=== PATIENT | female | born 1950 | race Hispanic/Latino ===

== ENCOUNTER 2017-08-18 01:39 | Inpatient (IN) | payer MEDICARE ==
[~2017-08-18] VITALS: Ht 154.9 cm; Wt 85.3 kg
[2017-08-18] MEDS ORDERED: SUCRALFATE 1 GM TABLET ONE ×3 (02:15→12:51)
[2017-08-18] MEDS ORDERED: HYOSCYAMINE SULFATE 0.125 MG TAB.SUBL SL ONE (02:15)
[2017-08-18] MEDS ORDERED: ONDANSETRON HCL 4 MG/2 ML VIAL ONE (02:15)
[2017-08-18] MEDS ORDERED: FAMOTIDINE/PF 20 MG/2 ML VIAL IV ONE (02:16)
[2017-08-18 02:35] LABS: BASOPHILS % (AUTO) 0.3 % (0.0-5.0); EOSINOPHILS % (AUTO) 0.1 % (0.0-8.0); HEMATOCRIT 35.1 % (36-48); LYMPHOCYTES % (AUTO) 21.9 % (21.0-51.0); MONOCYTES % (AUTO) 7.9 % (3.0-13.0); NEUTROPHILS % (AUTO) 69.8 % (40.0-77.0); PLATELET COUNT (AUTO) 304 K/uL (130-400); RED BLOOD CELL COUNT(AUTO) 4.23 MIL/uL (4.00-5.50); RED CELL DISTRIBUTION WIDTH 13.3 % (11.0-15.5); WHITE BLOOD COUNT (AUTO) 8.4 K/uL (4.8-10.8)
[2017-08-18 02:37] LABS: APPEARANCE,URINE Clear (CLEAR); BILIRUBIN,URINE Negative (NEGATIVE); COLOR,URINE Yellow (YELLOW); GLUCOSE, URINE (UA) Negative (NEGATIVE); KETONES,URINE Negative (NEGATIVE); LEUKOCYTE ESTERASE ,URINE Small (NEGATIVE); NITRATE,URINE Negative (NEGATIVE); OCCULT BLOOD,URINE Small (NEGATIVE); PH,URINE 6.5 (5.0-8.0); PROTEIN,URINE Negative (NEGATIVE); UROBILINOGEN,URINE 0.2 mg/dL (0.2-1.0)
[2017-08-18 02:49] LABS: BACTERIA,URINE Few /HPF (None Seen); MUCUS,URINE Rare LPF (None Seen); RBC,URINE None Seen /HPF (0-1); SQUAMOUS EPITHELIAL CELL,UR Few /LPF (0-2); WBC,URINE None Seen /HPF (0-1)
[2017-08-18 02:59] LABS: ALBUMIN 3.7 g/dL (3.5-5.0); BILIRUBIN,TOTAL 0.6 mg/dL (0.2-1.0); CREATINE KINASE MB 3.2 ng/mL (0.5-3.6); CREATININE 0.8 mg/dL (0.5-1.5); POTASSIUM 4.4 mmol/L (3.5-5.1); TOTAL PROTEIN, SERUM 7.6 g/dL (6.0-8.3)
[2017-08-18] MEDS ORDERED: SODIUM CHLORIDE 0.9% 1000ML 1,000 ML IV ONE ×2 (03:48→12:51)
[2017-08-18] MEDS: SODIUM CHLORIDE 0.9% 1000ML 1,000 ML IV SCH ×4 (05:12→23:07)
[2017-08-18] MEDS ORDERED: ONDANSETRON HCL 4 MG/2 ML VIAL IV PRN (05:15)
[2017-08-18] MEDS ORDERED: ACETAMINOPHEN 325 MG TAB PO PRN (05:15)
[2017-08-18] MEDS: SUCRALFATE 1 GM/10 ML PO SCH ×4 (07:30→23:07)
[2017-08-18 07:37] LABS: CARBON DIOXIDE 27 mmol/L (21-32); CREATINE KINASE, TOTAL 166 U/L (21-232); CREATININE 0.8 mg/dL (0.5-1.5); GLOMERULAR FILTR. RATE CALC 76 mL/min (>60); GLUCOSE,RANDOM 168 mg/dL (70-105); MYOGLOBIN 105 ng/mL (10-92); POTASSIUM 4.4 mmol/L (3.5-5.1); SODIUM SERUM 119 mmol/L (136-145); TROPONIN I < 0.04 ng/mL (0.00-0.06); UREA NITROGEN, BLOOD 10 mg/dL (7-18)
[2017-08-18 07:39] LABS: CHLORIDE 85 mmol/L (101-111)
[2017-08-18 08:01] LABS: CREATINE KINASE MB 3.2 ng/mL (0.5-3.6)
[2017-08-18] MEDS: PANTOPRAZOLE SODIUM 40 MG TABLET.DR PO SCH (09:00)
[2017-08-18] MEDS: ENOXAPARIN SODIUM 40 MG/0.4 ML SYRINGE SQ SCH (09:00)
[2017-08-18] MEDS ORDERED: PANTOPRAZOLE SODIUM 40 MG TABLET.DR PO ONE (09:06)
[2017-08-18] MEDS ORDERED: ENOXAPARIN SODIUM 40 MG/0.4 ML SYRINGE SQ ONE (09:06)
[2017-08-18 13:51] LABS: CREATINE KINASE MB 3.4 ng/mL (0.5-3.6); CREATINE KINASE, TOTAL 171 U/L (21-232); MYOGLOBIN 84 ng/mL (10-92); TROPONIN I < 0.04 ng/mL (0.00-0.06)
[2017-08-18 14:02] VITALS: BP 119/55
[2017-08-18] MEDS ORDERED: METF500T6 PO (15:09)
[2017-08-18] MEDS ORDERED: OMEG100033 PO (15:09)
[2017-08-18] MEDS ORDERED: ATOR10TA69 PO (15:09)
[2017-08-18] MEDS ORDERED: LISI40TA4 PO (15:09)
[2017-08-18] MEDS ORDERED: CHOL200013 PO (15:09)
[2017-08-18] MEDS ORDERED: SITA100T12 PO (15:09)
[2017-08-18] MEDS ORDERED: FERR-82 PO (15:09)
[2017-08-18 16:38] VITALS: BP 134/57
[2017-08-18 20:00] VITALS: BP 131/56
[2017-08-18 20:53] LABS: CREATININE 0.8 mg/dL (0.5-1.5); POTASSIUM 4.3 mmol/L (3.5-5.1)
[2017-08-19 00:18] VITALS: BP 127/53
[2017-08-19 02:12] LABS: CREATININE 0.8 mg/dL (0.5-1.5); POTASSIUM 4.7 mmol/L (3.5-5.1)
[2017-08-19 04:39] VITALS: BP 121/42
[2017-08-19] MEDS: SUCRALFATE 1 GM/10 ML PO SCH ×2 (06:36→12:38)
[2017-08-19 08:03] VITALS: BP 132/86
[2017-08-19] MEDS: PANTOPRAZOLE SODIUM 40 MG TABLET.DR PO SCH (08:18)
[2017-08-19] MEDS: ENOXAPARIN SODIUM 40 MG/0.4 ML SYRINGE SQ SCH (08:19)
[2017-08-19] MEDS: SODIUM CHLORIDE 0.9% 1000ML 1,000 ML IV SCH (08:25)
[2017-08-19] MEDS ORDERED: CARAL PO (08:59)
[2017-08-19] MEDS ORDERED: PANT40TA PO (08:59)
[2017-08-19 09:33] LABS: CREATININE 0.9 mg/dL (0.5-1.5); POTASSIUM 4.9 mmol/L (3.5-5.1)
[2017-08-19 11:20] VITALS: BP 124/54
== END 2017-08-19 12:45 | disposition home or self-care (01) | DRG 392 ==
LOC: EDH 01:39 → EDHIP 05:12 → 4AH 13:30
PROVIDERS: ADMIT Family Medicine; ATTEND Family Medicine
DX: K21.0 Gastro-esophageal reflux disease with esophagitis (principal); E87.1 Hypo-osmolality and hyponatremia; E87.8 Other disorders of electrolyte and fluid balance, not elsewhere classified; E11.9 Type 2 diabetes mellitus without complications; I10 Essential (primary) hypertension; E78.5 Hyperlipidemia, unspecified; E86.1 Hypovolemia
CPT/HCPCS: 36415; 80048; 80053; 81001; 82550; 82553; 82948; 83690; 83874; 83880; 84484; 85025; 93005; J1650; J2405; J3490; J7030

== ENCOUNTER 2017-09-27 14:59 | Emergency (ER) | payer MEDICARE ==
[~2017-09-27 14:59] MED LIST: ATOR10TA69 PO; CARAL PO; CHOL200013 PO; FERR-82 PO; LISI40TA4 PO; METF500T6 PO; OMEG100033 PO; PANT40TA PO; SITA100T12 PO
[2017-09-27] MEDS ORDERED: GUAIFENESIN SUGAR-FREE 100 MG/5 ML UDCUP ONE (15:41)
== END 2017-09-27 17:24 | disposition home or self-care (01) ==
LOC: EDH 14:59
DX: J10.1 Influenza due to other identified influenza virus with other respiratory manifestations (principal); E78.5 Hyperlipidemia, unspecified; E11.9 Type 2 diabetes mellitus without complications; I10 Essential (primary) hypertension
CPT/HCPCS: 71046; 87804

== ENCOUNTER 2017-10-03 14:38 | Inpatient (IN) | payer MEDICARE ==
[~2017-10-03] VITALS: Ht 154.9 cm; Wt 79.8 kg
[2017-10-03] MEDS ORDERED: ONDANSETRON ODT 4 MG TAB ONE (15:05)
[2017-10-03 15:19] LABS: BASOPHILS % (AUTO) 0.3 % (0.0-5.0); EOSINOPHILS % (AUTO) 0.1 % (0.0-8.0); HEMATOCRIT 33.6 % (36-48); MEAN CORPUSCULAR HEMOGLOBIN 28.8 pg (27.0-33.0); MEAN CORPUSCULAR HGB CONC 34.3 g/dL (32.0-36.0); MEAN CORPUSCULAR VOLUME 84.1 fL (79-99); MONOCYTES % (AUTO) 7.4 % (3.0-13.0); NEUTROPHILS % (AUTO) 68.2 % (40.0-77.0); PLATELET COUNT (AUTO) 314 K/uL (130-400); RED CELL DISTRIBUTION WIDTH 12.9 % (11.0-15.5); WHITE BLOOD COUNT (AUTO) 6.3 K/uL (4.8-10.8)
[2017-10-03 15:43] LABS: ALBUMIN 3.5 g/dL (3.5-5.0); BILIRUBIN,TOTAL 0.3 mg/dL (0.2-1.0); CREATININE 0.7 mg/dL (0.5-1.5); POTASSIUM 4.9 mmol/L (3.5-5.1); TOTAL PROTEIN, SERUM 7.4 g/dL (6.0-8.3)
[2017-10-03] MEDS ORDERED: SODIUM CHLORIDE 0.9% 1000ML 1,000 ML IV ONE (15:54)
[2017-10-03] MEDS ORDERED: SODIUM CHLORIDE 0.9% 1000ML 1,000 ML IV SCH (17:15)
[2017-10-03] MEDS ORDERED: ONDANSETRON HCL MDV 20ML 2 MG/ML VIAL IVP PRN (17:15)
[2017-10-03] MEDS ORDERED: BENZ-51 PO (18:25)
[2017-10-03 18:44] VITALS: BP 161/73
[2017-10-03] MEDS ORDERED: POTASSIUM CHLORIDE 20 MEQ ERTAB PO PRN (18:45)
[2017-10-03] MEDS ORDERED: POTASSIUM CHLORIDE 10% ELIXIR 20 MEQ/15 ML UDCUP PO PRN (18:45)
[2017-10-03] MEDS ORDERED: POTASSIUM CHLORIDE 20MEQ/100ML 100 ML IV PRN (18:45)
[2017-10-03] MEDS ORDERED: LIDOCAINE HCL-MPF 1% 2ML VIAL IVP PRN (18:45)
[2017-10-03] MEDS ORDERED: GLUCAGON 1MG KIT 1 MG ML IM PRN (18:45)
[2017-10-03] MEDS ORDERED: DEXTROSE 50%-WATER 50 ML DISP.SYRIN IV PRN (18:45)
[2017-10-03] MEDS ORDERED: BENZONATATE 100 MG CAPSULE PO PRN (19:00)
[2017-10-03] MEDS ORDERED: GUAIFENESIN-DM 200/20 MG 10 ML PO PRN (19:00)
[2017-10-03] MEDS ORDERED: PANTOPRAZOLE SODIUM 40 MG TABLET.DR PO SCH (19:12)
[2017-10-03] MEDS ORDERED: HYDRALAZINE HCL 20 MG/ML VIAL IM PRN (19:45)
[2017-10-03 20:00] VITALS: BP 148/69
[2017-10-03] MEDS: FISH OIL 1000 MG/CAP PO SCH (20:48)
[2017-10-03] MEDS: ATORVASTATIN CALCIUM 10 MG TABLET PO SCH (20:48)
[2017-10-03] MEDS: INSULIN HUMULIN R 100 UNIT/ML 3ML SQ SCH (20:48)
[2017-10-03] MEDS: FAMOTIDINE/PF 20 MG/2 ML VIAL IV SCH (20:48)
[2017-10-03] MEDS: SUCRALFATE 1 GM/10 ML PO SCH (20:48)
[2017-10-03] MEDS: FERROUS SULFATE 325 MG TABLET.DR PO SCH (20:48)
[2017-10-03] MEDS: ONDANSETRON HCL MDV 20ML 2 MG/ML VIAL IVP SCH (20:49)
[2017-10-03 21:17] LABS: CREATININE 0.7 mg/dL (0.5-1.5); POTASSIUM 4.7 mmol/L (3.5-5.1)
[2017-10-03 23:31] VITALS: BP 131/64
[2017-10-04 04:00] VITALS: BP 116/56
[2017-10-04] MEDS: GUAIFENESIN-DM 200/20 MG 10 ML PO SCH ×4 (06:01→17:35)
[2017-10-04 06:02] LABS: BASOPHILS % (AUTO) 0.5 % (0.0-5.0); HEMATOCRIT 30.2 % (36-48); LYMPHOCYTES % (AUTO) 37.1 % (21.0-51.0); MEAN CORPUSCULAR HEMOGLOBIN 30.5 pg (27.0-33.0); MEAN CORPUSCULAR HGB CONC 36.6 g/dL (32.0-36.0); MEAN CORPUSCULAR VOLUME 83.3 fL (79-99); MONOCYTES % (AUTO) 11.6 % (3.0-13.0); NEUTROPHILS % (AUTO) 50.8 % (40.0-77.0); PLATELET COUNT (AUTO) 304 K/uL (130-400); RED BLOOD CELL COUNT(AUTO) 3.63 MIL/uL (4.00-5.50); WHITE BLOOD COUNT (AUTO) 3.9 K/uL (4.8-10.8)
[2017-10-04] MEDS: ONDANSETRON HCL MDV 20ML 2 MG/ML VIAL IVP SCH ×2 (06:02→13:14)
[2017-10-04] MEDS: SODIUM CHLORIDE 0.9% 1000ML 1,000 ML IV SCH ×2 (06:02→22:38)
[2017-10-04 06:04] LABS: CREATININE 0.7 mg/dL (0.5-1.5); POTASSIUM 4.8 mmol/L (3.5-5.1)
[2017-10-04] MEDS: INSULIN HUMULIN R 100 UNIT/ML 3ML SQ SCH ×4 (06:11→20:50)
[2017-10-04] MEDS: METFORMIN HCL 500 MG TABLET PO SCH ×2 (07:47→17:35)
[2017-10-04] MEDS: SUCRALFATE 1 GM/10 ML PO SCH ×4 (07:48→20:50)
[2017-10-04] MEDS ORDERED: FAMOTIDINE 20MG TAB 20 MG TAB PO SCH (09:00)
[2017-10-04] MEDS: CHOLECALCIFEROL 2000 UNIT PO SCH (09:00)
[2017-10-04 09:22] VITALS: BP 144/75
[2017-10-04] MEDS: FISH OIL 1000 MG/CAP PO SCH ×2 (09:38→20:50)
[2017-10-04] MEDS: FAMOTIDINE/PF 20 MG/2 ML VIAL IV SCH ×2 (09:39→20:50)
[2017-10-04] MEDS: LISINOPRIL 40 MG TABLET PO SCH (09:39)
[2017-10-04] MEDS: LINAGLIPTIN 5 MG TABLET PO SCH (09:47)
[2017-10-04] MEDS: FERROUS SULFATE 325 MG TABLET.DR PO SCH ×2 (09:47→20:50)
[2017-10-04] MEDS: ENOXAPARIN SODIUM 40 MG/0.4 ML SYRINGE SQ SCH (09:48)
[2017-10-04 12:09] VITALS: BP 132/71
[2017-10-04 16:00] VITALS: BP 138/68
[2017-10-04 19:53] VITALS: BP 156/76
[2017-10-04] MEDS: ATORVASTATIN CALCIUM 10 MG TABLET PO SCH (20:50)
[2017-10-04 23:51] VITALS: BP 143/57
[2017-10-05] MEDS: GUAIFENESIN-DM 200/20 MG 10 ML PO SCH ×3 (00:17→13:25)
[2017-10-05 04:00] VITALS: BP 139/51
[2017-10-05] MEDS: INSULIN HUMULIN R 100 UNIT/ML 3ML SQ SCH ×3 (06:08→16:30)
[2017-10-05] MEDS: METFORMIN HCL 500 MG TABLET PO SCH (06:37)
[2017-10-05] MEDS: SUCRALFATE 1 GM/10 ML PO SCH ×2 (06:37→13:25)
[2017-10-05 06:46] LABS: CREATININE 0.7 mg/dL (0.5-1.5); MAGNESIUM 1.2 mg/dL (1.80-2.40); POTASSIUM 4.6 mmol/L (3.5-5.1)
[2017-10-05 07:30] VITALS: BP 132/64
[2017-10-05] MEDS: FISH OIL 1000 MG/CAP PO SCH (07:51)
[2017-10-05] MEDS: LINAGLIPTIN 5 MG TABLET PO SCH (07:51)
[2017-10-05] MEDS: FERROUS SULFATE 325 MG TABLET.DR PO SCH (07:51)
[2017-10-05] MEDS: FAMOTIDINE/PF 20 MG/2 ML VIAL IV SCH (07:52)
[2017-10-05] MEDS: ENOXAPARIN SODIUM 40 MG/0.4 ML SYRINGE SQ SCH (07:53)
[2017-10-05] MEDS: CHOLECALCIFEROL 2000 UNIT PO SCH (07:53)
[2017-10-05] MEDS ORDERED: LEVOFLOXACIN 500 MG/D5W 100 ML 100 ML IV SCH (09:00)
[2017-10-05] MEDS ORDERED: MAGNESIUM 2GM PREMIX 50ML 50 ML IV SCH (09:45)
[2017-10-05 11:00] VITALS: BP 141/63
[2017-10-05] MEDS: LISINOPRIL 40 MG TABLET PO SCH (13:24)
[2017-10-05] MEDS: SODIUM CHLORIDE 0.9% 1000ML 1,000 ML IV SCH (13:25)
[2017-10-05] MEDS ORDERED: MEGE400O4 PO (15:48)
[2017-10-05 16:00] VITALS: BP 137/64
== END 2017-10-05 17:25 | disposition home or self-care (01) | DRG 641 ==
LOC: EDH 14:38 → EDHIP 16:55 → 4CH 18:34
PROVIDERS: ADMIT Family Medicine; ATTEND Family Medicine
DX: E87.1 Hypo-osmolality and hyponatremia (principal); E11.9 Type 2 diabetes mellitus without complications; J20.9 Acute bronchitis, unspecified; E78.5 Hyperlipidemia, unspecified; I10 Essential (primary) hypertension; K21.9 Gastro-esophageal reflux disease without esophagitis; E86.0 Dehydration; Z79.84 Long term (current) use of oral hypoglycemic drugs; Z91.14 Patient's other noncompliance with medication regimen; Z98.49 Cataract extraction status, unspecified eye
CPT/HCPCS: 36415; 71045; 80048; 80053; 82948; 83735; 85025; 87633; 87880; J1650; J1956; J3475; J3490; J7030

== ENCOUNTER 2018-05-13 15:53 | Inpatient (IN) | payer MEDICARE ==
[~2018-05-13] VITALS: Ht 152.4 cm; Wt 79.6 kg
[~2018-05-13 15:53] MED LIST changes: +BENZ-51 PO; +MEGE400O4 PO; +METF-444 PO; -METF500T6 PO
[2018-05-13 16:17] LABS: APPEARANCE,URINE Clear (CLEAR); BILIRUBIN,URINE Negative (NEGATIVE); COLOR,URINE Dark Yellow (YELLOW); GLUCOSE, URINE (UA) TRACE mg/dL (NEGATIVE); KETONES,URINE Negative (NEGATIVE); LEUKOCYTE ESTERASE ,URINE Small (NEGATIVE); NITRATE,URINE Positive (NEGATIVE); OCCULT BLOOD,URINE Small (NEGATIVE); PH,URINE 5.5 (5.0-8.0); PROTEIN,URINE Negative (NEGATIVE)
[2018-05-13] MEDS ORDERED: ONDANSETRON HCL 4 MG/2 ML VIAL ONE (16:34)
[2018-05-13] MEDS ORDERED: LACTATED RINGERS 1000ML 1,000 ML IV ONE (16:34)
[2018-05-13] MEDS ORDERED: FAMOTIDINE/PF 20 MG/2 ML VIAL IV ONE (16:35)
[2018-05-13 16:39] LABS: BASOPHILS % (AUTO) 0.3 % (0.0-5.0); HEMATOCRIT 32.4 % (36-48); LYMPHOCYTES % (AUTO) 17.5 % (21.0-51.0); MEAN CORPUSCULAR HEMOGLOBIN 28.7 pg (27.0-33.0); MEAN CORPUSCULAR HGB CONC 34.1 g/dL (32.0-36.0); MONOCYTES % (AUTO) 6.9 % (3.0-13.0); NEUTROPHILS % (AUTO) 75.3 % (40.0-77.0); PLATELET COUNT (AUTO) 257 K/uL (130-400); RED BLOOD CELL COUNT(AUTO) 3.85 MIL/uL (4.00-5.50); RED CELL DISTRIBUTION WIDTH 13.6 % (11.0-15.5); WHITE BLOOD COUNT (AUTO) 6.7 K/uL (4.8-10.8)
[2018-05-13 16:46] LABS: BACTERIA,URINE Rare /HPF (None Seen); RBC,URINE 0-1 /HPF (0-1); SQUAMOUS EPITHELIAL CELL,UR Few /HPF (0-2)
[2018-05-13] MEDS ORDERED: CEFTRIAXONE SODIUM 1 GM ONE (16:48)
[2018-05-13] MEDS ORDERED: SODIUM CHLORIDE 0.9% 50 ML IV ONE (16:48)
[2018-05-13 16:49] LABS: INR 0.95 (0.85-1.15); PARTIAL THROMBOPLASTIN TIME 32.8 SEC (26.3-35.5)
[2018-05-13 17:02] LABS: ALANINE AMINOTRANSFERASE 17 U/L (12-78); ALBUMIN 3.5 g/dL (3.5-5.0); ASPARTATE AMINOTRANSFERASE 19 U/L (10-37); BILIRUBIN,TOTAL 0.4 mg/dL (0.2-1.0); CARBON DIOXIDE 25 mmol/L (21-32); CREATINE KINASE, TOTAL 169 U/L (21-232); GLOMERULAR FILTR. RATE CALC 58 mL/min (>60); GLUCOSE,RANDOM 138 mg/dL (70-105); MYOGLOBIN 169 ng/mL (10-92); POTASSIUM 4.1 mmol/L (3.5-5.1); SODIUM SERUM 121 mmol/L (136-145); TOTAL PROTEIN, SERUM 7.7 g/dL (6.0-8.3); TROPONIN I < 0.04 ng/mL (0.00-0.06); UREA NITROGEN, BLOOD 10 mg/dL (7-18)
[2018-05-13 17:05] LABS: CHLORIDE 85 mmol/L (101-111)
[2018-05-13] MEDS ORDERED: MAGNESIUM 2GM PREMIX 50ML 50 ML IV ONE (17:23)
[2018-05-13] MEDS: SODIUM CHLORIDE 0.9% 1000ML 1,000 ML IV SCH (17:53)
[2018-05-13] MEDS ORDERED: ONDANSETRON HCL 4 MG/2 ML VIAL IV PRN (18:00)
[2018-05-13] MEDS: CEFTRIAXONE SODIUM 1 GM IV SCH (18:00)
[2018-05-13] MEDS ORDERED: LACTULOSE 20 GM/30 ML UDCUP PO PRN (18:00)
[2018-05-13] MEDS ORDERED: ACETAMINOPHEN 325 MG TAB PO PRN (18:00)
[2018-05-13 18:34] LABS: HEMOGLOBIN A1C 7.5 % (4.0-6.0)
[2018-05-13 19:25] LABS: THYROID STIMULATING HORMONE 0.71 uIU/mL (0.36-3.74)
[2018-05-13] MEDS ORDERED: ATORVASTATIN CALCIUM 10 MG TABLET ONE (20:19)
[2018-05-13] MEDS: SUCRALFATE 1 GM/10 ML PO SCH (21:00)
[2018-05-13] MEDS: FERROUS SULFATE 325 MG TABLET.DR PO SCH (21:00)
[2018-05-13] MEDS: ATORVASTATIN CALCIUM 10 MG TABLET PO SCH (21:00)
[2018-05-13 21:25] VITALS: BP 122/58
[2018-05-13 23:00] VITALS: BP 117/71
[2018-05-14 03:00] VITALS: BP 115/57
[2018-05-14 05:26] LABS: HEMATOCRIT 30.1 % (36-48); MEAN CORPUSCULAR HEMOGLOBIN 29.3 pg (27.0-33.0); MEAN CORPUSCULAR HGB CONC 34.5 g/dL (32.0-36.0); PLATELET COUNT (AUTO) 270 K/uL (130-400); RED BLOOD CELL COUNT(AUTO) 3.54 MIL/uL (4.00-5.50); RED CELL DISTRIBUTION WIDTH 13.6 % (11.0-15.5); WHITE BLOOD COUNT (AUTO) 4.7 K/uL (4.8-10.8)
[2018-05-14 05:42] LABS: CREATININE 0.9 mg/dL (0.5-1.5); POTASSIUM 4.3 mmol/L (3.5-5.1)
[2018-05-14] MEDS: SODIUM CHLORIDE 0.9% 1000ML 1,000 ML IV SCH (05:58)
[2018-05-14 07:00] VITALS: BP 115/54
[2018-05-14] MEDS: PANTOPRAZOLE SODIUM 40 MG TABLET.DR PO SCH ×2 (08:48→09:00)
[2018-05-14] MEDS: FERROUS SULFATE 325 MG TABLET.DR PO SCH ×2 (08:48→21:32)
[2018-05-14] MEDS: SUCRALFATE 1 GM/10 ML PO SCH ×4 (08:49→21:32)
[2018-05-14] MEDS: MEGESTROL 400 MG/10 ML UDCUP PO SCH (08:49)
[2018-05-14] MEDS: LISINOPRIL 40 MG TABLET PO SCH ×2 (08:49→09:00)
[2018-05-14] MEDS: ENOXAPARIN SODIUM 40 MG/0.4 ML SYRINGE SQ SCH (08:50)
[2018-05-14 16:00] VITALS: BP 112/51
[2018-05-14] MEDS: CEFTRIAXONE SODIUM 1 GM IV SCH (18:21)
[2018-05-14 19:25] VITALS: BP 124/54
[2018-05-14] MEDS: ATORVASTATIN CALCIUM 10 MG TABLET PO SCH (21:32)
[2018-05-15] VITALS (7 sets, daily range): BP systolic 130–139; BP diastolic 50–65
[2018-05-15 05:22] LABS: BASOPHILS % (AUTO) 0.6 % (0.0-5.0); EOSINOPHILS % (AUTO) 0.2 % (0.0-8.0); HEMATOCRIT 28.9 % (36-48); LYMPHOCYTES % (AUTO) 43.7 % (21.0-51.0); MEAN CORPUSCULAR HEMOGLOBIN 29.6 pg (27.0-33.0); MEAN CORPUSCULAR HGB CONC 34.5 g/dL (32.0-36.0); MONOCYTES % (AUTO) 10.1 % (3.0-13.0); NEUTROPHILS % (AUTO) 45.4 % (40.0-77.0); PLATELET COUNT (AUTO) 263 K/uL (130-400); RED BLOOD CELL COUNT(AUTO) 3.36 MIL/uL (4.00-5.50); RED CELL DISTRIBUTION WIDTH 13.5 % (11.0-15.5); WHITE BLOOD COUNT (AUTO) 4.7 K/uL (4.8-10.8)
[2018-05-15 05:28] LABS: CREATININE 0.9 mg/dL (0.5-1.5)
[2018-05-15] MEDS: SUCRALFATE 1 GM/10 ML PO SCH ×4 (07:30→21:24)
[2018-05-15] MEDS: PANTOPRAZOLE SODIUM 40 MG TABLET.DR PO SCH ×2 (09:00→10:32)
[2018-05-15] MEDS: MEGESTROL 400 MG/10 ML UDCUP PO SCH (10:32)
[2018-05-15] MEDS: FERROUS SULFATE 325 MG TABLET.DR PO SCH ×2 (10:32→21:24)
[2018-05-15] MEDS: LISINOPRIL 40 MG TABLET PO SCH (10:32)
[2018-05-15] MEDS: ENOXAPARIN SODIUM 40 MG/0.4 ML SYRINGE SQ SCH (10:33)
[2018-05-15] MEDS: MAGNESIUM 2GM PREMIX 50ML 50 ML IV PRN (10:39)
[2018-05-15] MEDS: CEFTRIAXONE SODIUM 1 GM IV SCH (17:54)
[2018-05-15] MEDS: ATORVASTATIN CALCIUM 10 MG TABLET PO SCH (21:24)
[2018-05-15] MEDS ORDERED: SODIUM CHLORIDE 0.9% 1000ML 0 ML IV ONE (21:28)
[2018-05-16 03:00] VITALS: BP 133/66
[2018-05-16 05:48] LABS: BASOPHILS % (AUTO) 0.4 % (0.0-5.0); EOSINOPHILS % (AUTO) 0.1 % (0.0-8.0); HEMATOCRIT 29.7 % (36-48); LYMPHOCYTES % (AUTO) 43.4 % (21.0-51.0); MEAN CORPUSCULAR HEMOGLOBIN 29.3 pg (27.0-33.0); MEAN CORPUSCULAR HGB CONC 34.2 g/dL (32.0-36.0); MEAN CORPUSCULAR VOLUME 85.7 fL (79-99); MONOCYTES % (AUTO) 8.7 % (3.0-13.0); NEUTROPHILS % (AUTO) 47.4 % (40.0-77.0); PLATELET COUNT (AUTO) 271 K/uL (130-400); RED BLOOD CELL COUNT(AUTO) 3.47 MIL/uL (4.00-5.50); RED CELL DISTRIBUTION WIDTH 13.7 % (11.0-15.5); WHITE BLOOD COUNT (AUTO) 5.4 K/uL (4.8-10.8)
[2018-05-16 06:08] LABS: CREATININE 0.7 mg/dL (0.5-1.5); POTASSIUM 4.2 mmol/L (3.5-5.1)
[2018-05-16] MEDS: SUCRALFATE 1 GM/10 ML PO SCH ×2 (06:37→11:53)
[2018-05-16 08:00] VITALS: BP 149/64
[2018-05-16] MEDS ORDERED: LEVO500T2 PO (08:00)
[2018-05-16] MEDS: PANTOPRAZOLE SODIUM 40 MG TABLET.DR PO SCH ×2 (09:00→09:43)
[2018-05-16] MEDS: MEGESTROL 400 MG/10 ML UDCUP PO SCH (09:43)
[2018-05-16] MEDS: FERROUS SULFATE 325 MG TABLET.DR PO SCH (09:44)
[2018-05-16] MEDS: ENOXAPARIN SODIUM 40 MG/0.4 ML SYRINGE SQ SCH (09:44)
[2018-05-16] MEDS: LISINOPRIL 40 MG TABLET PO SCH (09:44)
[2018-05-16] MEDS: MAGNESIUM 2GM PREMIX 50ML 50 ML IV PRN (09:45)
== END 2018-05-16 14:20 | disposition home or self-care (01) | DRG 689 ==
LOC: EDH 15:53 → EDHIP 17:53 → 3BH 21:29
PROVIDERS: ADMIT Internal Medicine; ATTEND Internal Medicine
DX: N39.0 Urinary tract infection, site not specified (principal); G93.41 Metabolic encephalopathy; E87.1 Hypo-osmolality and hyponatremia; E11.9 Type 2 diabetes mellitus without complications; I10 Essential (primary) hypertension; E78.5 Hyperlipidemia, unspecified; N12 Tubulo-interstitial nephritis, not specified as acute or chronic; R31.0 Gross hematuria; Z79.84 Long term (current) use of oral hypoglycemic drugs; Z98.42 Cataract extraction status, left eye; Z98.41 Cataract extraction status, right eye; Z23 Encounter for immunization; Z83.3 Family history of diabetes mellitus; Z82.41 Family history of sudden cardiac death
CPT/HCPCS: 36415; 76770; 80048; 80053; 81001; 82140; 82550; 82948; 83036; 83605; 83735; 83874; 84443; 84484; 85025; 85027; 85610; 85730; 87040; 87088; 93005; 99291; A4218; J0696; J1650; J2405; J3475; J3490; J7030; J7120; Q2038

== ENCOUNTER 2018-09-17 22:46 | Inpatient (IN) | payer MEDICARE | END 2018-09-19 12:05 | disposition home or self-care (01) | LOC: EDH 22:46 → EDHIP 09-18 00:25 → 4AH 09-18 03:02 | DX: E87.1 Hypo-osmolality and hyponatremia (principal); I10 Essential (primary) hypertension; K21.9 Gastro-esophageal reflux disease without esophagitis; E11.9 Type 2 diabetes mellitus without complications; E78.5 Hyperlipidemia, unspecified; Z79.84 Long term (current) use of oral hypoglycemic drugs ==

== ENCOUNTER → 2019-11-11 | Outpatient (CLI) | payer MEDICARE ==
[~2019-11-11] MED LIST changes: -ATOR10TA69 PO; -BENZ-51 PO; -CARAL PO; -CHOL200013 PO; -FERR-82 PO; +FERS325 PO; -MEGE400O4 PO; -METF-444 PO; +METF-446 PO; +NYST15CR TP; +OMEG-148 PO; -OMEG100033 PO; +OMEP40CA13 PO; -PANT40TA PO; +SIMV10TA97 PO
== END | disposition home or self-care (01) ==
LOC: RAH 13:59
PROVIDERS: ATTEND Nurse Practitioner Family
DX: M77.32 Calcaneal spur, left foot (principal); G31.9 Degenerative disease of nervous system, unspecified
CPT/HCPCS: 70551; 73610

== ENCOUNTER → 2020-10-24 | Outpatient (CLI) | payer MEDICARE ==
[~2020-10-24] MED LIST changes: -LISI40TA4 PO; +LISI40TA9 PO
== END | disposition home or self-care (01) ==
LOC: RAH 15:44
PROVIDERS: ATTEND Nurse Practitioner Family
DX: R33.8 Other retention of urine (principal)
CPT/HCPCS: 76770